=== PATIENT | male | born 2000 | race Caucasian/White ===

== ENCOUNTER 2020-12-08 16:16 | Emergency (ER) | payer OTHER ==
[~2020-12-08] VITALS: Ht 190.5 cm; Wt 99.8 kg
== END 2020-12-08 19:00 | disposition home or self-care (01) ==
LOC: EMR PED 16:16
DX: U07.1 COVID-19 (principal)

== ENCOUNTER 2020-12-12 08:00 | Outpatient (CLI) | payer OTHER | END 2020-12-12 10:00 | disposition home or self-care (01) | LOC: ASH CLINIC 08:00 | PROVIDERS: ATTEND Emergency Medicine Pediatric Emergency Medicine | DX: Z23 Encounter for immunization (principal); U07.1 COVID-19 ==